=== PATIENT | female | born 1980 | race African-American/Black ===

== ENCOUNTER 2019-03-06 17:07 | Emergency (ER) | payer OTHER ==
[~2019-03-06] VITALS: Ht 160 cm; Wt 70.0 kg
[~2019-03-06 17:07] MED LIST: AUGMENTIN500 MG OR; NO HOME MEDS; ULTRAM50 MG OR
[2019-03-06] MEDS ORDERED: FLOXIN OTIC0.3 % AD (17:30)
[2019-03-06] MEDS ORDERED: AMOXICILLIN875 MG PO (17:30)
[2019-03-06 17:34] VITALS: BP 120/82
== END 2019-03-06 17:39 | disposition home or self-care (01) ==
LOC: ED 17:07
DX: H60.91 Unspecified otitis externa, right ear (principal); J02.9 Acute pharyngitis, unspecified

== ENCOUNTER 2020-03-01 09:12 | Emergency (ER) | payer OTHER ==
[~2020-03-01] VITALS: Ht 160 cm; Wt 81.8 kg
[~2020-03-01 09:12] MED LIST changes: +AMOXICILLIN875 MG PO; +FLOXIN OTIC0.3 % AD
[2020-03-01 10:40] VITALS: BP 115/81
== END 2020-03-01 10:40 | disposition home or self-care (01) ==
LOC: ED 09:12
DX: J06.9 Acute upper respiratory infection, unspecified (principal); Z20.828 Contact with and (suspected) exposure to other viral communicable diseases

== ENCOUNTER 2020-10-19 08:43 | Emergency (ER) | payer OTHER ==
[~2020-10-19] VITALS: Ht 160 cm; Wt 72.7 kg
[2020-10-19 10:05] LABS: URINE BLOOD DIPSTICK SMALL (NEGATIVE); URINE GLUCOSE - DIPSTICK NEGATIVE (NEGATIVE); URINE KETONE TRACE mg/dL (NEGATIVE); URINE LEUK ESTERASE NEGATIVE (NEGATIVE); URINE NITRITE - DIPSTICK NEGATIVE (Negative); URINE PROTEIN - DIPSTICK TRACE mg/dL (NEG-TRACE); URINE SPECIFIC GRAVITY 1.015
[2020-10-19 10:08] LABS: URINE BILIRUBIN - DIPSTICK SMALL (NEGATIVE); URINE COLOR DK. YELLOW
[2020-10-19 10:08] LABS: IMMATURE GRANULOCYTES 0.3 % (0.0-5.0); MEAN CELL VOLUME 82.5 fL CALC (80.0-100.0); MEAN CORPUSCULAR HGB 27.4 pG CALC (26.0-32.0); MEAN CORPUSCULAR HGB CONC 33.3 g/dL CAL (32.0-36.0); NEUT# 4.74 thou/uL (2.00-7.15); RED BLOOD COUNT 4.92 mill/uL (4.20-5.60); RED CELL DISTRI WIDTH 12.4 % (11.5-15.5)
[2020-10-19 10:09] LABS: URINE EPITHELIAL CELLS FEW EPI/hpf (0-FEW); URINE RBC 0-2 RBC/hpf (0-5)
[2020-10-19 10:14] LABS: ALBUMIN 4.3 g/dL (3.2-5.0); ALKALINE PHOSPHATASE 82 u/l (38-126); AMYLASE 68 u/l (30-110); ANION GAP 14 (6-22 (CALC)); BUN 7 mg/dL (7-17); BUN/CREATININE RATIO 10 (12-20 (CALC)); CARBON DIOXIDE 23 mmol/l (22-30); CHLORIDE 107 mmol/l (95-108); CREATININE 0.7 mg/dL (0.5-1.0); GFR > 60 ML/MIN (>=60 (CALC)); GFR FOR AFR.AMER. > 60 ML/MIN (>=60 (CALC)); LIPASE 58 u/l (23-300); POTASSIUM 3.8 mmol/l (3.5-5.1); SGOT/AST 20 u/l (14-36); SODIUM 140 mmol/l (137-146); TOTAL PROTEIN 7.5 g/dL (6.3-8.2)
[2020-10-19 10:18] LABS: BILIRUBIN, TOTAL 2.2 mg/dL (0.0-1.4)
[2020-10-19 10:22] LABS: HEMATOCRIT 40.6 % (37.0-47.0); HEMOGLOBIN 13.5 g/dl (12.0-16.0)
[2020-10-19] MEDS ORDERED: ZOFRAN4 MG/TAB PO (13:36)
[2020-10-19] MEDS ORDERED: TAM75CAP PO (13:36)
[2020-10-19 14:11] VITALS: BP 102/72
== END 2020-10-19 14:26 | disposition home or self-care (01) ==
LOC: ED 08:43
DX: J10.1 Influenza due to other identified influenza virus with other respiratory manifestations (principal); Z20.822 Contact with and (suspected) exposure to COVID-19

== ENCOUNTER 2022-07-07 17:03 | Emergency (ER) | payer OTHER ==
[~2022-07-07] VITALS: Ht 160 cm; Wt 70.0 kg
[~2022-07-07 17:03] MED LIST changes: +TAM75CAP PO; +ZOFRAN4 MG/TAB PO
[2022-07-07 17:23] VITALS: BP 111/77
== END 2022-07-07 18:58 | disposition left against medical advice (07) ==
LOC: ED 17:03
DX: M54.50 Low back pain, unspecified (principal); Y04.2XXA Assault by strike against or bumped into by another person, initial encounter; Z53.29 Procedure and treatment not carried out because of patient's decision for other reasons